=== PATIENT | male | born 1985 | race Two or more races ===

== ENCOUNTER 2024-12-19 17:06 | Emergency (ER) | payer OTHER ==
[~2024-12-19] VITALS: Ht 177.8 cm; Wt 90.0 kg
[2024-12-19 17:15] VITALS: BP 160/100; PULSE 120; RESP 20; TEMP 99; O2SAT 100
[2024-12-19] MEDS ORDERED: SODIUM CHLORIDE 0.9% 1,000 ML IV ONE (17:45)
--- NOTE | 2024-12-19 18:39 | ED.PDOC ---
History of Present Illness HPI Comments This is a 39 years old male was brought in [facility] ED [facility]. According to the EMS the patient was not saying his name but he was very combative. In the ED the patient was initially AX0 and later became A&O x4 was giving his family contact and wanted to go back to home. Contacted with the family and came to know that the patient has some mental issues. The patient leave the hospital with the family Chief Complaint: Mental Health Time Seen by MD: 17:08 Information Source: Relative (Mother) Mode of Arrival: EMS Severity: Mild Timing: Hours Duration: Since onset Prehospital treatment: None Past Medical History Past Medical History (Other): Mental health issues unspecified Surgical History: Unknown Family History Family History: Unknown Social History Smoker: Unobtainable Alcohol: Unobtainable Drugs: Unobtainable Lives In: Home All Other Systems: Deferred Physical Exam Exam Comments Physical exam was not possible as patient did not let to do that General Appearance: No Apparent Distress HEENT: NOT DONE Neck: NOT DONE Respiratory: NOT DONE Cardiovascular: NOT DONE Breast Exam: Deferred Gastrointestinal: NOT DONE Genitalia: Deferred Pelvic: Deferred Rectal: Deferred Extremities: NOT DONE Musculoskeletal : Apperance: Normal Neurologic: NOT DONE Cerebellar Function: NOT DONE Reflexes: NOT DONE Skin: NOT DONE Lymphatic: NOT DONE Was a procedure done? Was a procedure done?: No Differential Dx Considerations may include: A LOC, mental health issue, drug abuse Time of 1ST Reevaluation: 18:00 Reevaluation 1ST: The patient is A&O x4 and Patient Education/Counseling: Other (The patient left the hospital without being triaged) Family Education/Counseling: No Family Present SEPSIS Sepsis Screen Physician Orders Sodium Chloride 0.9% (12/19/24 17:45) Departure 1 Departure Time of Disposition: 18:20 Impression: Primary Impression: Mental and behavioral problem Disposition: LEFT WITHOUT BEING TRIAGED Condition: Guarded Critical Care Note Critical Care Time?: No Stability Stability form required: SAEED Silva RESIDENT Dec 19, 2024 18:39
== END 2024-12-19 17:57 | disposition home or self-care (01) ==
LOC: ER 17:06 → EDBD 17:06 → ER 17:57
DX: F98.9 Unspecified behavioral and emotional disorders with onset usually occurring in childhood and adolescence (principal)